=== PATIENT | male | born 1970 ===

== ENCOUNTER 2018-02-21 05:52 | Day surgery (SDC) | payer OTHER ==
[~2018-02-21] VITALS: Ht 167.6 cm; Wt 65.8 kg
[2018-02-21 08:49] VITALS: BP 148/80
== END 2018-02-21 09:15 | DRG 352 ==
LOC: ORM 05:52 → ENDO 05:52 → ORM 07:00
PROVIDERS: ATTEND Surgery
PROC: 0YU50JZ Supplement Right Inguinal Region with Synthetic Substitute, Open Approach (ICD-10-PCS; principal; 2018-02-21)
DX: K40.90 Unilateral inguinal hernia, without obstruction or gangrene, not specified as recurrent (principal)
CPT/HCPCS: C9290